=== PATIENT | male | born 1970 | race Caucasian/White ===

== ENCOUNTER 2017-07-18 11:08 | Emergency (ER) | payer BC, OTHER ==
[~2017-07-18] VITALS: Ht 167.6 cm; Wt 56.7 kg
[~2017-07-18 11:08] MED LIST: HYDR-569 PO
[2017-07-18 11:11] VITALS: BP 134/98
== END 2017-07-18 14:07 | disposition left against medical advice (07) ==
LOC: ER 11:09
DX: L02.211 Cutaneous abscess of abdominal wall (principal); Z53.21 Procedure and treatment not carried out due to patient leaving prior to being seen by health care provider

== ENCOUNTER 2017-07-25 21:59 | Emergency (ER) | payer MEDICAID, OTHER ==
[~2017-07-25] VITALS: Ht 167.6 cm; Wt 55.5 kg
[2017-07-26] MEDS ORDERED: SULF1TAB49 PO (01:10)
[2017-07-26] MEDS ORDERED: sulfamethoxazole/trimethoprim DS (800/160mg) tablet PO ONE (01:10)
[2017-07-26 01:17] VITALS: BP 159/98
== END 2017-07-26 01:19 | disposition home or self-care (01) ==
LOC: ER 22:00
DX: L02.214 Cutaneous abscess of groin (principal); F15.10 Other stimulant abuse, uncomplicated; F12.10 Cannabis abuse, uncomplicated; K21.9 Gastro-esophageal reflux disease without esophagitis; F17.200 Nicotine dependence, unspecified, uncomplicated; Z88.0 Allergy status to penicillin
CPT/HCPCS: 99283